=== PATIENT | female | born 1945 | race Caucasian/White ===

== ENCOUNTER 2017-10-28 11:39 | Observation (INO) ==
--- NOTE | 2017-10-27 22:40 | Discharge Summary ---
<Trinh Soriano E - Last Filed: 10/28/17 14:59> Date of Encounter: 10/28/17 - Discharge Diagnosis (1) Rotator cuff tear arthropathy of right shoulder Priority: Primary Status: Chronic (2) Status post total replacement of right shoulder Priority: Primary Status: Acute (3) Hypothyroid Priority: Secondary Status: Chronic Qualifiers: Hypothyroidism type: unspecified Qualified Code(s): E03.9 - Hypothyroidism , unspecified (4) HLD (hyperlipidemia) Priority: Secondary Status: Chronic Qualifiers: Hyperlipidemia type: unspecified Qualified Code(s): E78.5 - Hyperlipidemia , unspecified (5) COPD (chronic obstructive pulmonary disease) Priority: Secondary Status: Chronic Qualifiers: COPD type: unspecified COPD Qualified Code(s): J44.9 - Chronic obstructive pulmonary disease, unspecified (6) Fibromyalgia Priority: Secondary Status: Chronic (7) Chronic pain Priority: Secondary Status: Chronic Qualifiers: Chronic pain type: other chronic pain Qualified Code(s): G89.29 - Other chronic pain - Hospital Course Hospital course: Ms. Hairston is a 71 year old female - Time Spent with Patient Total time spent providing and/or coordinating discharge services: - Discharge Medications Home Medications: Aspirin 81 mg PO DAILY 11/30/16 [History] BuPROPion XL (24 HR) [Wellbutrin Xl] 150 mg PO DAILY 11/30/16 [History] Cholecalciferol (Vitamin D3) [Vitamin D3] 1,000 unit PO DAILY 11/30/16 [History] HYDROcodone/Acet 5/325 mg [[place] 5-325 mg] 1 tab PO BID PRN 11/30/16 [History] Levothyroxine [Synthroid] 75 mcg PO 30 11/30/16 [History] Lisinopril [Zestril] 20 mg PO DAILY 11/30/16 [History] Lovastatin [Mevacor] 20 mg PO HS 11/30/16 [History] Omeprazole [PriLOSEC] 40 mg PO DAILY 11/30/16 [History] Oxycodone HCl 5 mg PO Q6H PRN 7 Days #28 tablet 10/27/17 [Rx] Docusate Sodium [Dok] 100 mg PO DAILY 10/28/17 [History] FLUoxetine HCl [Fluoxetine HCl] 10 mg PO DAILY 10/28/17 [History] Levothyroxine [Synthroid] 75 mcg PO 0630 10/28/17 [History] Meloxicam 15 mg PO DAILY 10/28/17 [History] Mv-Mn/FA/Vit K/Lycop/Lut/Coq10 [Daily Multivitamin Capsule] 1 tab PO DAILY 10/28 [History] OxyCODONE Immed Rel [Roxicodone 5 MG] 5 mg PO Q6HR PRN 7 Days #28 tablet [Rx] Tizanidine HCl 4 mg PO BID PRN 10/28/17 [History] Allergies/Adverse Reactions: 3 Allergy/AdvReac Type Severity Reaction Status Date / Time citalopram Allergy Rash Verified 10/28/17 12:32 methocarbamol [From Robaxin] Allergy Rash Verified 10/28/17 12:32 morphine Allergy Rash Verified 10/28/17 12:32 Primary care physician: Roc Chan DO - Patient Status Disposition: Home, Self-Care Condition: Good - Discharge Instructions Instructions: Oxycodone, Rapid Release (By mouth) Follow Up With: Roc Chan DO [Primary Care Provider] - Additional Instructions: Discharge Instructions: Total Shoulder Please call [facility] ([phone]), your Primary Care Physician, or report to the Emergency Room if you have any of the following symptoms: Nausea, vomiting, fever greater that 101.5, swelling, chest pain, shortness of breath, increased pain/redness/drainage/odor for your incision site, numbness/ tingling, or any other concerning symptoms. ACTIVITY: Always keep your arm in the sling. Do not raise your arm away from your body. Do not use your arm to help with getting in or out of bed. No weight bearing permitted. Only perform those exercises given to you by your therapist. MEDICATIONS: Upon discharge resume your home medications. Take all the medications as prescribed. Take a stool softener if taking narcotic pain medications. Stool softeners are only effective if you drink enough fluids. Drink 6-8 glass of water or fluids a day, unless this is not allowed for another health problem. Despite using stool softeners, if you haven't had a bowel movement in 3 days, please switch to a gentle laxative. Gentle laxatives are sold over the counter. You should have a bowel movement within 24 hours, if not call the office. You will be discharged from the hospital with a prescription for pain medication. You are encouraged to decrease the use of narcotic pain medication as tolerated. Should you require a refill, please call the office. [facility] prescribes narcotic pain medication for only 4-6 weeks after surgery. If you require pain medication beyond this time period, you may be referred to your Primary Care Physician or to the Pain Clinic for further evaluation. Plan ahead for refills on pain medication as many narcotics either need to be picked up at the office or mailed. It is best to call 48-72 hours in advance of needing a prescription refill so you don't run out of medication. To help control the post-operative pain, you may take NSAIDs (Aleve,Advil, Motrin, Ibuprofen, Naprosyn) or Tylenol as prescribed on the bottle in addition to the pain medication. WOUND CARE: Leave the dressing on for 7-10 days. You may change the dressing if it becomes saturated greater than 50%. Do not get the dressing wet at anytime. Wash your hands with antibacterial soap, rinse and dry prior to any wound care. If you have meeta the visiting nurse or rehab facility can remove the stapes 10-14 days after surgery and place steri-strips across the wound. Leave the steri-strips in place until they fall off on their own. You may let water from the shower run on top of the steri-strips. If you do not have a visiting nurse or rehab facility, you will need to return to the office at 10-14 days for the meeta to be removed. If you have itching or redness around the dressing call the office. FOLLOW-UP: Please follow up with your surgeon in the orthopedic clinic, as scheduled <Geovanny Haro - Last Filed: 10/30/17 07:47> Orders not resulted at time of discharge: Pending orders 10/28/17 01:00 XR shoulder complete RT [XR] Routine Hemoglobin and Hematocrit [HEME] Routine Date of Encounter: 10/30/17 Time of Encounter: 07:46 - Discharge Diagnosis (1) Rotator cuff tear arthropathy of right shoulder Priority: Primary Status: Chronic (2) Status post total replacement of right shoulder Priority: Primary Status: Acute (3) Hypothyroid Priority: Secondary Status: Chronic Qualifiers: Hypothyroidism type: unspecified Qualified Code(s): E03.9 - Hypothyroidism , unspecified (4) HLD (hyperlipidemia) Priority: Secondary Status: Chronic Qualifiers: Hyperlipidemia type: unspecified Qualified Code(s): E78.5 - Hyperlipidemia , unspecified (5) COPD (chronic obstructive pulmonary disease) Priority: Secondary Status: Chronic Qualifiers: COPD type: unspecified COPD Qualified Code(s): J44.9 - Chronic obstructive pulmonary disease, unspecified (6) Fibromyalgia Priority: Secondary Status: Chronic (7) Chronic pain Priority: Secondary Status: Chronic Qualifiers: Chronic pain type: other chronic pain Qualified Code(s): G89.29 - Other chronic pain - Hospital Course Hospital course: Ms. Hairston is a 71 year old female Status post total shoulder replacement discharged home same day - Time Spent with Patient Total time spent providing and/or coordinating discharge services: Primary care physician: Roc Chan DO
--- NOTE | 2017-10-28 12:12 | History & Physical Report ---
Date of Encounter: 10/28/17 Time of Encounter: 12:11 24 Hour HP Update - Instructions Instructions: If the History and Physical is less than 30 days old and was completed prior to A.M. admission and or procedure and has NOT been updated on calendar day of procedure please complete this update prior to performing procedure. - Update Patient reports changes in Medical Condition: No Changes in examination, assessment, or condition: No Changes in Medication: No Preop tests/diagnostics Reviewed: Yes Surgery Remains Indicated: Yes Consent for Planned Operative Procedure(s) Verified: Yes - Pre-Operative Checklist Preoperative Checklist Indicated: No Prophylactic Antibiotic Ordered: Yes Is VTE Prophylaxis Indicated?: Yes
[2017-10-28] MEDS ORDERED: CeFAZolin Syr 2,000MG/20 ML 2,000 MG/20 ML SYRINGE IVPB ONE (12:31)
[2017-10-28] MEDS ORDERED: Albuterol 2.5 MG/3 ML NEBULIZER IH ONE (12:31)
[2017-10-28] MEDS ORDERED: Albuterol 2.5 MG/3 ML NEBULIZER ONE (12:34)
--- NOTE | 2017-10-28 12:43 | Anesthesia Evaluation PreOp ---
Date of Encounter: 10/28/17 Time of Encounter: 12:41 - Past History Planned Operation: Right reverse TSA Cardiac History: HTN Pulmonary History: Smoker, COPD [employer] History: Other (Anxiety, chronic pain, fibromyalgia) Other Medical History: Renal (istory of EILEEN, residual mild CRI), Thyroid Anesthesia History: No Prior Anesthetic Complications, Past Anesthesia Alcohol Use: none Drug use: none Medications and Allergies Aspirin 81 mg PO DAILY 11/30/16 [History] BuPROPion XL (24 HR) [Wellbutrin XL] 150 mg PO DAILY 11/30/16 [History] Cholecalciferol (Vitamin D3) [Vitamin D] 1,000 unit PO DAILY 11/30/16 [History] HYDROcodone/Acet 5/325 mg [[place] 5-325 mg] 1 tab PO BID PRN 11/30/16 [History] Levothyroxine [Synthroid] 75 mcg PO 30 11/30/16 [History] Lisinopril [Zestril] 20 mg PO DAILY 11/30/16 [History] Lovastatin [Mevacor] 20 mg PO HS 11/30/16 [History] Omeprazole [PriLOSEC] 40 mg PO DAILY 11/30/16 [History] Oxycodone HCl 5 mg PO Q6H PRN 7 Days #28 tablet 10/27/17 [Rx] Docusate Sodium [Dok] 100 mg PO DAILY 10/28/17 [History] FLUoxetine HCl [Fluoxetine HCl] 10 mg PO DAILY 10/28/17 [History] Levothyroxine [Synthroid] [place] [address]/28/17 [History] Meloxicam [Meloxicam] 15 mg PO DAILY 10/28/17 [History] Mv-Mn/FA/Vit K/Lycop/Lut/Coq10 [Daily Multivitamin Capsule] 1 tab PO DAILY 10/28 [History] Tizanidine HCl 4 mg PO BID PRN 10/28/17 [History] 3 Allergy/AdvReac Type Severity Reaction Status Date / Time citalopram Allergy Rash Verified 10/28/17 12:32 methocarbamol [From Robaxin] Allergy Rash Verified 10/28/17 12:32 morphine Allergy Rash Verified 10/28/17 12:32 - Meds/Allergy Pre-op Review Medications Reviewed: Yes Allergies Reviewed: Yes Beta Blockers on Current Med List: No Anesthesia Results - Labs Laboratory Tests 02/24/16 10/24/17 10/24/17 14:27 08:16 08:16 Hgb 14.3 Plt Count 243 Potassium 4.1 POC Creatinine 1.00 Est GFR (Non-Af Amer) 59 L Glucose 98 Anesthesia Exam O2 Sat Height 1.63 m Height 1.63 m Weight 61.689 kg Weight 61.689 kg BMI 23 Vital Signs Temp Pulse Resp BP Pulse Ox 98.0 F 64 18 145/68 93 10/28/17 12:29 10/28/17 12:29 10/28/17 12:29 10/28/17 12:29 10/28/17 12:29 NPO (# of Hours): 8 - HEENT Mallampati: II Teeth: Normal - Cardiac Rhythm: Regular - Pulmonary Breath Sounds: bilateral Clear Anesthesia Assess/Plan ASA Score: 3 Modified Rool Scale for Level of Consciousness: Anixous, agitated or restless Anesthetic Plan: General, Regional (For postoperative pain per surgeon request) Monitoring Plan: Standard Monitors Recovery Plan: PACU Anes Supervising Prov Stmt: Patient informed and consented. Risks, benefits, and alternatives discussed. Patient wishes to proceed.
[2017-10-28] MEDS ORDERED: *HR* Midazolam HCl 2 MG/2 ML VIAL ONE (12:44)
[2017-10-28] MEDS ORDERED: *HR* Propofol 200 MG/20 ML VIAL IVP ONE (12:44)
[2017-10-28] MEDS ORDERED: *HR* FentaNYL (PF) 100 MCG/2 ML VIAL ONE (12:44)
[2017-10-28] MEDS ORDERED: Ringers Solution, Lactated 1,000 ML IVC SCH ×2 (12:45→16:18)
[2017-10-28] MEDS ORDERED: ROPIVACAINE HCL/PF 0.5% 30 ML VIAL ONE (13:28)
[2017-10-28] MEDS ORDERED: Bupivacaine/Clonidine Syringe 1 EACH SYRINGE ONE (13:29)
--- NOTE | 2017-10-28 14:05 | Anesthesia Procedures ---
Date of Encounter: 10/28/17 Time of Encounter: 14:03 Procedures: Anesthesia - Nerve Block Procedure Date: 10/28/17 Time: 14:03 Allergies/Adv Reactions: citalopram, methocarbamol, morphine Pre-op Diagnosis: R shoulder RTC arthropathy Surgical Procedure: R reverse TSR Checklist: Correct Patient Identifier, Correct procedure, History checked Correct side: Right Blood Thinner: No Monitor Applied: EKG, BP, Pulse Oximetry Supplemental Oxygen via Nasal Cannula (L/min): 3 Sedation: Versed (mg): 2 Sedation: Fentanyl (mcg): 100 Indication: Post Op Analgesia (requested by Dr. Haro) Pre-op Neuro Deficits: No Block Type: Supraclavicular, Other (SCP) Catheter placed: No Sterile Technique: Yes Ultrasound used: Yes Anatomy identified: Yes Visual spread of Local: Yes Neuro Stimulation: No Blood on Needle Aspiration: No Smooth Injection of Local: Yes Pain with Injection of Local: No Prep: Chlorhexadine Needle: 22 x 50 mm Stimuplex Local: 0.25% Bupivicaine w/Clonidine 20 mcg/cc (5mL injected for SCP), Ropivacaine (0.5%) Volume (cc): 30 Number of Attempts: 1 Complications: None/effective block Vitals: please see [facility] electronic records for VS entry.
[2017-10-28] MEDS ORDERED: *HR* OxyCODONE Immed Rel 5 MG TABLET PO PRN ×2 (14:31→16:18)
[2017-10-28] MEDS ORDERED: Ondansetron 4 MG/2 ML VIAL IVP PRN ×2 (14:31→16:18)
[2017-10-28] MEDS ORDERED: *HR* PHENYLEPHRINE 1,000 MCG/10 ML SYRINGE IVP ONE (14:33)
--- NOTE | 2017-10-28 15:04 | Orthopedic Operative Note ---
Date of procedure: 10/28/17 Pre-op diagnosis: Right shoulder cuff tear arthropathy Post-op diagnosis: same Procedure: Procedure: Right Total Shoulder Replacment Reverse, biceps tenodesis Estimated blood loss: 100 cc Hardware: Metal and polyethylene replacement: Arthrex medium glenoid baseplate , 2 4.5 screws. 1 6.5 screw, 39+4 glenosphere, 7 humeral stem, poly insert 6 Exam Under anesthesia: Full motion no instability Procedural Notes: Irreparable tear supraspinatus tendon. Operative procedure: The patient was brought to the operating room and placed on the operating room table. After general anesthesia was administered the operative shoulder was examined. Findings were noted. The patient was placed in the modified beachchair position. All pressure points were padded appropriately. And the head was stabilized in the neutral position. The operative extremity was prepped and draped in the sterile surgical fashion. The patient received IV antibiotics prior to skin incision. A standard deltopectoral approach was made to the operative shoulder. Incision was made to the skin and subcutaneous tissue,hemo stasis was obtained with Bovie cautery. Using careful blunt dissection the cephalic vein was identified and mobilized medially. The deltopectoral interval was developed and the clavipectoral fascia was incised. The subscap was released off the lesser tuberosity and tagged with #2 FiberWire suture subscap was irreparable. The humerus was dislocated patient noted to have irreparable tear supraspinatus tendon, and the humeral cut was made along the anatomic neck. Anterior and posterior Bankart retractors were placed to expose the glenoid. The glenoid guide was seated and the centering hole was made. It was reamed with the appropriate reamer. The medium baseplate was seated and secured with (2) 4.5 screws and one 6.5 screw. The baseplate was irrigated and dried and the 39+4 Glenosphere was seated and secured with the Dumont taper. The Dumont taper was tested and found to be secure the humerus was redislocated and prepared with the diaphyseal reamers, followed by a broaching process up to the appropriate size 7 in the patient's anatomic version. The metaphyseal reamer was then utilized. Trial reduction found the shoulder to be relocatable. Trial components were removed and the 7 stem was impacted in place in the patient's anatomic version. Trial reduction found the shoulder to be relocatable and stable with the appropriate 6 Sophie Trial component was removed and the real 6 Abbey was seated and secured the shoulder was reduced. The shoulder had excellent motion and excellent stability and no evidence of dislocation. The deep tissue was irrigated with pulse irrigation. The shoulder was closed by the PA. The deltopectoral interval was closed with a running #1 PDS suture, subcutaneous tissue was irrigated and closed with 0 PDS suture, the skin was closed with Dermabond. The patient was placed in a sterile dressing, abduction brace and extubated. The patient was then transferred to the recovery room in stable condition. Anesthesia: GETA Surgeon: Geovanny Haro Was there an botany laboratory assistant present: Yes Jewel Oliving Machine Operator: Tamiko Hernandez Estimated blood loss (cc): 100 Condition: stable Disposition: PACU
--- NOTE | 2017-10-28 15:45 | Anesthesia Evaluation Post Op ---
Date of Encounter: 10/28/17 Time of Encounter: 15:44 - Vital Signs Vital Signs: Vital Signs/O2 Sat, Most Current Temp Pulse Resp BP Pulse Ox 98.6 F 73 16 162/73 95 10/28/17 15:18 10/28/17 15:38 10/28/17 15:38 10/28/17 15:28 10/28/17 15:38 - Lungs Lungs: Clear Ascult./Percussion - Airway Airway: Non-obstructed - Cardiovascular Regular Rate, Baseline Rhythm - Mental Status Mental Status: Alert & Oriented, Answers Appropriately - Pain Pain Scale: 0 - Nausea Vomiting Nausea Vomiting: Not Present - Hydration Hydration: Ice chips - Discharge PostOp Status: Transfer Patient to floor
[2017-10-28 15:59] LABS: Hematocrit 35.3 % (35.3-44.9)
[2017-10-28] MEDS ORDERED: Naloxone 0.4 MG/ML INJ IVP PRN (16:18)
[2017-10-28] MEDS ORDERED: tiZANidine 4 MG TABLET PO PRN (16:18)
[2017-10-28] MEDS ORDERED: Temazepam 15 MG CAPSULE PO PRN (16:18)
[2017-10-28] MEDS ORDERED: Sennosides 8.6 MG TABLET PO PRN (16:18)
[2017-10-28] MEDS ORDERED: MOM Conc 10 ML UD.LIQ PO PRN (16:18)
[2017-10-28] MEDS ORDERED: *HR* OxyCODONE/APAP 5/325 TABLET PO PRN (16:18)
[2017-10-28] MEDS ORDERED: traMADol 50 MG TABLET PO PRN (16:18)
[2017-10-28 16:25] LABS: Hemoglobin 11.4 g/dL (11.5-15.4)
[2017-10-28] MEDS ORDERED: *HR* Enoxaparin 30 MG/0.3 ML SYRINGE SQ SCH ×2 (18:00)
[2017-10-28] MEDS ORDERED: CeFAZolin Pre 2,000 MG/100 ML 2,000 MG/100 ML BAG IVPB SCH (18:30)
[2017-10-28 18:40] VITALS: BP 132/67
[2017-10-29] MEDS ORDERED: FLUoxetine HCl 10 MG CAPSULE PO SCH (09:00)
[2017-10-29] MEDS ORDERED: BuPROPion XL (24 HR) 150 MG TABLET PO SCH (09:00)
[2017-10-29] MEDS ORDERED: Cholecalciferol (D-3) 1,000 UNIT TABLET PO SCH (09:00)
[2017-10-29] MEDS ORDERED: Aspirin 81 MG TAB.CHEW PO SCH (09:00)
[2017-10-29] MEDS ORDERED: Lisinopril 20 MG TABLET PO SCH (09:00)
--- NOTE | 2017-10-29 09:34 | Physician Discharge Referral ---
Home Health/Hosp Referral Info Transfer to: Home Health Attending Provider: Dr Geovanny Haro - Diagnosis (1) Rotator cuff tear arthropathy of right shoulder Priority: Primary Status: Chronic (2) Status post total replacement of right shoulder Priority: Primary Status: Acute (3) Hypothyroid Priority: Secondary Status: Chronic (4) HLD (hyperlipidemia) Priority: Secondary Status: Chronic (5) COPD (chronic obstructive pulmonary disease) Priority: Secondary Status: Chronic (6) Fibromyalgia Priority: Secondary Status: Chronic (7) Chronic pain Priority: Secondary Status: Chronic - Respiratory Orders Smoking Cessation: Smoking cessation has been advised. For more information, call the [place] Tobacco Quit Line at 6-548-TPTQ-NOW. - Dressing/Wound Care Site: right shoulder Type of Dressing/Treatments w/Frequency: Opsite placed. Keep dressing intact until first follow up appointment. If greater than 50% saturated, notify office, remove dressing and place appropriate dressing back in place. Leave Zipline intact. Opsite dressing is water resistant, not water-proof. OK to shower, but do not get dressing wet. - Diet/Nutrition Diet/Nutrition Orders: Regular - Activity Activity Orders: Up ad toby, Ambulate, Chair - Services Needed Following services are medically necessary services: Nursing, Home Health Aide, Physical Therapy, Occupational Therapy Home Care Orders: PT/OT. NWB to affected upper extremity. Follow Shoulder Precautions x 6 weeks. Stay in brace during activity and at night. Remove brace during exercises. ICE and elevate extremity frequently throughout the day. - Transfer Medications Home Medications: Aspirin 81 mg PO DAILY 11/30/16 [History] BuPROPion XL (24 HR) [Wellbutrin Xl] 150 mg PO DAILY 11/30/16 [History] Cholecalciferol (Vitamin D3) [Vitamin D3] 1,000 unit PO DAILY 11/30/16 [History] HYDROcodone/Acet 5/325 mg [[place] 5-325 mg] 1 tab PO BID PRN 11/30/16 [History] Levothyroxine [Synthroid] 75 mcg PO 0630 11/30/16 [History] Lisinopril [Zestril] 20 mg PO DAILY 11/30/16 [History] Lovastatin [Mevacor] 20 mg PO HS 11/30/16 [History] Omeprazole [PriLOSEC] 40 mg PO DAILY 11/30/16 [History] Oxycodone HCl 5 mg PO Q6H PRN 7 Days #28 tablet 10/27/17 [Rx] Docusate Sodium [Dok] 100 mg PO DAILY 10/28/17 [History] FLUoxetine HCl [Fluoxetine HCl] 10 mg PO DAILY 10/28/17 [History] Levothyroxine [Synthroid] 75 mcg PO 0630 10/28/17 [History] Meloxicam 15 mg PO DAILY 10/28/17 [History] Mv-Mn/FA/Vit K/Lycop/Lut/Coq10 [Daily Multivitamin Capsule] 1 tab PO DAILY 10/28 [History] OxyCODONE Immed Rel [Roxicodone 5 MG] 5 mg PO Q6HR PRN 7 Days #28 tablet [Rx] Tizanidine HCl 4 mg PO BID PRN 10/28/17 [History] Allergies/Adverse Reactions: 3 Allergy/AdvReac Type Severity Reaction Status Date / Time citalopram Allergy Rash Verified 10/28/17 12:32 methocarbamol [From Robaxin] Allergy Rash Verified 10/28/17 12:32 morphine Allergy Rash Verified 10/28/17 12:32 Certification: Further, I certify that my clinical findings support that this patient is homebound (i.e. absences from home require considerable and taxing effort and are for medical reasons or mormonism services or infrequently or short duration when for other reasons) because: Homebound Reason: Post-surgery restriction and or conditions limit ability to leave home Attestation: My signature below is to certify that this patient is under my care and that I, or nurse practitioner, or a physician real estate executive assistant working with me, has a face-to- face encounter with this patient.
== END 2017-10-28 20:15 | disposition home or self-care (01) | DRG 483 ==
LOC: SAMDAY 11:39 → 3NENU 15:52 → INTOOBSV 15:52
PROVIDERS: ADMIT Orthopaedic Surgery; ATTEND Orthopaedic Surgery